=== PATIENT | female | born 1950 | race African-American/Black ===

== ENCOUNTER 2016-10-06 05:51 | Day surgery (SDC) | payer MEDICARE, OTHER, SELFPAY ==
[~2016-10-06 05:51] MED LIST: ADDER10 PO; ASAB PO; B121000P IM; CALTRA600D PO; CORTEF20 MG PO; EPIPEN0.3 IM; FLEX PO; FOLIC PO; KLONO1 PO; LAMICTAL10 PO; LAMICTAL200 MG PO; LEVOTHROID137 MCG PO; LIDODERM T; NAP500 PO; NASONEX NAS; NORCO1 TA1 PO; NUVIGIL250 MG PO; OMNARIS; PR25 PO; PRAVACHOL40 MG PO; PREV30 PO; PROVIGIL2 PO; RECLAST IV; REG5 PO; ROZEREM8 MG PO; SOMATAB PO; SYN112 PO; SYNTHROID137 MCG PO; VICTOZA18 MG/3 ML SC; VITAMIN D1000 UNI1 PO; VITD PO; VIVELLE SY0.0375 MG/ TOP; VOLT25 PO; VOLT75 PO; VOLTAREN1 % TOP; XYZAL5 MG PO; [UNRECOGNIZED DRUG - CODE] IM; [UNRECOGNIZED DRUG - OTHER] IM; [UNRECOGNIZED DRUG - OTHER] PO
== END 2016-10-06 10:05 | disposition home or self-care (01) ==
LOC: SDC 05:51
PROVIDERS: Orthopaedic Surgery
PROC: 3E0R3BZ Introduction of Anesthetic Agent into Spinal Canal, Percutaneous Approach (ICD-10-PCS; 2016-10-06)
PROC: 3E0R33Z Introduction of Anti-inflammatory into Spinal Canal, Percutaneous Approach (ICD-10-PCS; principal; 2016-10-06 09:00)
DX: M54.16 Radiculopathy, lumbar region (principal); E11.9 Type 2 diabetes mellitus without complications; R56.9 Unspecified convulsions; E78.00 Pure hypercholesterolemia, unspecified; I48.91 Unspecified atrial fibrillation; M81.0 Age-related osteoporosis without current pathological fracture; K21.9 Gastro-esophageal reflux disease without esophagitis; E03.9 Hypothyroidism, unspecified; Z88.5 Allergy status to narcotic agent; Z90.710 Acquired absence of both cervix and uterus; Z88.8 Allergy status to other drugs, medicaments and biological substances; Z88.0 Allergy status to penicillin; Z88.2 Allergy status to sulfonamides; Z90.49 Acquired absence of other specified parts of digestive tract; Z98.890 Other specified postprocedural states
CPT/HCPCS: 82962; J1200; J2250; J2405; Q9967